=== PATIENT | female | born 1990 | race Caucasian/White ===

== ENCOUNTER 2016-11-09 23:13 | Emergency (ER) | payer MEDICAID ==
[2016-11-09 23:18] VITALS: BP 111/64; PULSE 59; RESP 16; TEMP 97.7; O2SAT 97
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
== END 2016-11-10 00:10 | disposition home or self-care (01) ==
DX: M54.5 Low back pain (principal)

== ENCOUNTER 2016-11-27 06:42 | Emergency (ER) | payer MEDICAID ==
[2016-11-27] MEDS ORDERED: ONDANSETRON 4 MG/2 ML VIAL IVP ONE (07:14)
[2016-11-27] MEDS ORDERED: IBUPROFEN 600 MG TAB PO ONE (07:14)
[2016-11-27] MEDS ORDERED: ACETAMINOPHEN 325 MG TAB PO ONE (07:14)
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
[2016-11-27] MEDS ORDERED: ONDANSETRON DISINTEGRATING 4 MG TAB ONE (07:31)
[2016-11-27] MEDS ORDERED: ONDANSETRON DISINTEGRATING 4 MG TAB PO ONE (07:33)
[2016-11-27 08:14] VITALS: BP 99/58; PULSE 50; RESP 18; TEMP 98.6; O2SAT 95
== END 2016-11-27 08:14 | disposition home or self-care (01) ==
DX: R51 Headache (principal); R42 Dizziness and giddiness